=== PATIENT | female | born 1980 | race Caucasian/White ===

== ENCOUNTER 2017-03-04 10:34 | Emergency (ER) | payer BC ==
[2017-03-04 10:43] VITALS: RESP 16; TEMP 98.2
--- NOTE | 2017-03-04 10:56 | ED PDOC ---
Arrival/HPI - General Chief Complaint: Abdominal Pain Time Seen by Provider: 03/04/17 10:51 Historian: Patient - History of Present Illness Narrative History of Present Illness (Text): 03/04/17 10:53 36 year old female, no significant pmh, nkda, complaining of lt. lower abdominal pain started yesterday. Aching and cramping pain, no nausea or vomiting, no diarrhea, no headache, no fever or chills, no change in appetize, eating and drinking well, no coughing, no pleuritic pain, no shortness of breath, no night sweat, no abdominal surgery, no other medical or psychological complaints. Past Medical History - Provider Review Nursing Documentation Reviewed: Yes - Psychiatric Hx Psychophysiologic Disorder: No Hx Substance Use: No Family/Social History - Physician Review Nursing Documentation Reviewed: Yes Family/Social History: Unknown Family HX Smoking Status: Never Smoked Hx Alcohol Use: No Hx Substance Use: No Allergies/Home Meds Allergies/Adverse Reactions: Allergies No Known Allergies Allergy (Verified 03/04/17 10:39) Review of Systems - Review of Systems Constitutional: absent: Fatigue, Fevers Eyes: absent: Vision Changes ENT: absent: Hearing Changes Respiratory: absent: SOB, Cough Cardiovascular: absent: Chest Pain Gastrointestinal: Abdominal Pain. absent: Diarrhea, Nausea, Vomiting Genitourinary Female: absent: Dysuria Musculoskeletal: absent: Arthralgias, Myalgias Skin: absent: Rash, Pruritis Neurological: absent: Headache, Dizziness Physical Exam Vital Signs Reviewed: Yes Vital Signs Temp Pulse Resp BP Pulse Ox 03/04/17 11:21 98.2 F 72 16 104/72 98 03/04/17 10:39 98.2 F 70 16 102/68 97 Temperature: Afebrile Blood Pressure: Normal Pulse: Regular Respiratory Rate: Normal Appearance: Positive for: Well-Appearing, Non-Toxic, Comfortable Pain Distress: Mild Mental Status: Positive for: Alert and Oriented X 3 - Systems Exam Head: Present: Atraumatic, Normocephalic Pupils: Present: PERRL Extroacular Muscles: Present: EOMI Conjunctiva: Present: Normal Mouth: Present: Moist Mucous Membranes Neck: Present: Normal Range of Motion Respiratory/Chest: Present: Clear to Auscultation, Good Air Exchange. No: Respiratory Distress, Accessory Muscle Use Cardiovascular: Present: Regular Rate and Rhythm, Normal S1, S2. No: Murmurs Abdomen: Present: Normal Bowel Sounds. No: Tenderness, Distention, Peritoneal Signs, Rebound, Guarding Genitourinary/Pelvic Exam: Present: Other (Pt. deferred and declined. ) Back: Present: Normal Inspection Upper Extremity: Present: Normal Inspection. No: Cyanosis, Edema Lower Extremity: Present: Normal Inspection. No: Edema Neurological: Present: GCS=15, Speech Normal, Motor Func Grossly Intact, Gait Normal, Memory Normal Skin: Present: Warm, Dry, Normal Color. No: Rashes Psychiatric: Present: Alert, Oriented x 3, Normal Insight, Normal Concentration Medical Decision Making ED Course and Treatment: 03/04/17 11:01 -labs/ua -Transvaginal sonogram -Abdominal xray -IVF/toradol -Observe and reassess 03/04/17 13:54 -Urine hcg: negative -Labs are non-significant -UA show mild UTI -Abdominal xray: mild fecal retention with no obstruction, magnesium citrate ordered. -Sonogram show: 1.4cm follicular cyst on left ovary with normal blood flow, no torsion -Pain decreased with the IV toradol -Discharge home with magnesium citrate, naproxen, macrobid, bed rest, heat compression, high fiber diet, follow up with your own pmd and obgy/GI within 2 days, return to the ER for any new or worsening signs or symptoms. - Lab Interpretations Lab Results: 03/04/17 11:05 03/04/17 11:05 Lab Results 03/04/17 11:15: Urine Color Yellow, Urine Appearance Clear, Urine pH 6.5, Ur Specific [place] 1.020, Urine Protein Negative, Urine Glucose (UA) Negative, Urine Ketones Negative, Urine Blood Small H, Urine Nitrate Negative, Urine Bilirubin Negative, Urine Urobilinogen 0.2, Ur Leukocyte Esterase Small H, Urine RBC 0 - 2, Urine WBC 1 - 3, Ur Epithelial Cells 1 - 3, Urine Bacteria Small 03/04/17 11:05: Sodium 139, Potassium 4.1, Chloride 107, Carbon Dioxide 22, Anion Gap 14, BUN 11, Creatinine 0.6, Est GFR ( Amer) > 60, Est GFR (Non- Af Amer) > 60, Random Glucose 96, Calcium 9.1, Total Bilirubin 0.4, AST 22, ALT 25, Alkaline Phosphatase 87, Total Protein 7.9, Albumin 4.0, Globulin 3.8, Albumin/Globulin Ratio 1.1, Lipase 60 03/04/17 11:05: WBC 6.9, RBC 4.18, Hgb 11.3 L, Hct 33.4 L, MCV 79.9 L, MCH 27.0 , MCHC 33.8, RDW 15.0 H, Plt Count 368, MPV 8.7, Gran % 68.3 H, Lymph % (Auto) 22.4, Boyle % (Auto) 6.6 H, Eos % (Auto) 2.6, Baso % (Auto) 0.1, Gran # 4.73, Lymph # 1.6, Boyle # 0.5, Eos # 0.2, Baso # 0.01 Interpretation: Abnormal lab values (UA show +UTI) - RAD Interpretation Radiology Orders: 03/04/17 10:57 ABDOMEN MULTIPLE VIEW (w/OBL) [RAD] Stat TRANSVAGINAL [US] Stat 03/04/17 12:34 TRANSVAGINAL [US] Stat Abdominal xray: HISTORY: LLQ pain, non-tender COMPARISON: No prior. FINDINGS: BOWEL: No evidence of bowel obstruction. Mild retained feces. No masses or abnormal intra-abdominal calcifications. An intrauterine device is noted within the pelvis. BONES: Normal. OTHER FINDINGS: None. IMPRESSION: No evidence of bowel obstruction. Mild fecal retention. HISTORY: r/o ovarian torsion COMPARISON: None available. TECHNIQUE: Transabdominal and transvaginal FINDINGS: UTERUS: Measures 9.2 x 4.8 x 5.5 cm. Normal in size and appearance. No fibroid or other mass lesion seen. ENDOMETRIUM: Endometrial thickness cannot be adequately evaluated in the presence of an intrauterine device. IUD noted centrally within the endometrial echo complex. CERVIX: No cervical abnormality identified. RIGHT OVARY: Measures 2.3 x 1.4 x 1.5 cm. No solid mass. Normal flow. LEFT OVARY: Measures cm. No solid mass. Normal flow. 1.4 cm follicular cyst. FREE FLUID: No significant free fluid noted. OTHER FINDINGS: None. IMPRESSION: Intrauterine device noted. Otherwise unremarkable examination. [employer]: Radiologist - Medication Orders Current Medication Orders: Discontinued Medications Sodium Chloride (Sodium Chloride 0.9%) 1,000 mls @ 999 mls/hr IV .Q1H1M STA Stop: 03/04/17 11:57 Last Admin: 03/04/17 11:16 Dose: 999 mls/hr eMAR Start Stop Document 03/04/17 11:16 AD (Rec: 03/04/17 11:16 AD [id number]) Intravenous Solution Start Date 03/04/17 Start Time 11:16 Ketorolac Tromethamine (Toradol) 30 mg IVP STAT STA Stop: 03/04/17 10:58 Last Admin: 03/04/17 11:16 Dose: 30 mg MAR Pain Assessment Document 03/04/17 11:16 AD (Rec: 03/04/17 11:17 AD [id number]) Pain Reassessment Is this a pain reassessment? No Presence of Pain Presence of Pain Yes Pain Scale Used Pain Scale Used Numeric Location Left, Right or Bilateral Left Pain Location Body Site Abdomen Description Description Sharp Intensity of Pain at present 8 Pain Behavior Facial Grimacing Aggravating Factors ADL's Changing Position Exercise/Activity Alleviating Factors/Management Medication Techniques IVP Administration Document 03/04/17 11:16 AD (Rec: 03/04/17 11:17 AD [id number]) Charges for Administration # of IVP Administrations 1 - PA / INJECTION MOLDING PROCESS TECHNICIAN / Resident Statement MD/DO has reviewed & agrees with the documentation as recorded. Disposition/Present on Arrival - Present on Arrival Any Indicators Present on Arrival: No History of DVT/PE: No History of Uncontrolled Diabetes: No Urinary Catheter: No History of Decub. Ulcer: No History Surgical Site Infection Following: None - Disposition Have Diagnosis and Disposition been Completed?: Yes Diagnosis: Constipation, Ovarian cyst, UTI (urinary tract infection) Disposition: HOME/ ROUTINE Disposition Time: 13:57 Patient Plan: Discharge Condition: IMPROVED Additional Instructions: -Discharge home with magnesium citrate, naproxen, macrobid, bed rest, heat compression, high fiber diet, follow up with your own pmd and obgy/GI within 2 days, return to the ER for any new or worsening signs or symptoms. Prescriptions: Naproxen 500 mg PO BID PRN #22 tab PRN Reason: Other Nitrofurantoin Macrocrystals [Macrobid] 100 mg PO BID #14 cap Referrals: PCP,NO [Primary Care Provider] - Follow up with primary Zaria Fraser MD [Medical Doctor] - Follow up with primary Jose Moore MD [Staff Provider] - Follow up with primary [facility] at [facility] [place] [Outside] - Follow up with primary Forms: [employer] (Algerian), WORK NOTE
[2017-03-04] MEDS ORDERED: Sodium Chloride 0.9% 1,000 ML IV STA (10:57)
[2017-03-04 11:22] VITALS: BP 104/72; PULSE 72; O2SAT 98
[2017-03-04 11:25] LABS: BASO # 0.01 K/mm3 (0.0-2.0); BASO % 0.1 % (0.0-3.0); EOS # 0.2 (0.0-0.7); EOS % 2.6 % (1.5-5.0); GRAN # 4.73 (1.4-6.5); GRAN % 68.3 % (50.0-68.0); HEMATOCRIT 33.4 % (36.0-48.0); LYMPH # 1.6 (1.2-3.4); LYMPH % 22.4 % (22.0-35.0); MEAN CELL VOLUME 79.9 fl (80.0-105.0); MEAN CORPUSCULAR HGB CONC 33.8 g/dl (31.0-37.0); MEAN PLATELET VOLUME 8.7 fl (7.0-11.0); MONO # 0.5 (0.1-0.6); MONO % 6.6 % (1.0-6.0); WHITE BLOOD COUNT 6.9 10^3/ul (4.5-11.0)
[2017-03-04 11:25] LABS: PH,URINE 6.5 (4.7-8.0); URINE BILIRUBIN NEGATIVE (NEGATIVE); URINE BLOOD SMALL (NEGATIVE); URINE GLUCOSE (UA) NEGATIVE (NEGATIVE); URINE KETONE NEGATIVE (NEGATIVE); URINE LEUKOCYTE ESTERASE SMALL Leu/uL (NEGATIVE); URINE PROTEIN NEGATIVE mg/dL (<30 mg/dL); URINE UROBILINOGEN 0.2 E.U./dL (<1 E.U./dL)
[2017-03-04 11:28] LABS: URINE APPEARANCE CLEAR (CLEAR); URINE COLOR YELLOW (YELLOW)
[2017-03-04 11:34] LABS: ALB/GLOB RATIO 1.1 (1.1-1.8); ALKALINE PHOSPHATASE 87 U/L (38-126); ALT/SGPT 25 U/L (7-56); AST/SGOT 22 U/L (14-36); BILIRUBIN,TOTAL 0.4 mg/dL (0.2-1.3); BLOOD UREA NITROGEN 11 mg/dL (7-21); CALCIUM 9.1 mg/dL (8.4-10.5); CARBON DIOXIDE 22 mmol/L (21-33); CHLORIDE 107 mmol/L (98-107); GFR AFRICAN-AMERICAN > 60; GLUCOSE,RANDOM 96 mg/dL (70-110); LIPASE 60 U/L (23-300); POTASSIUM 4.1 mmol/L (3.6-5.0); SODIUM 139 mmol/L (132-148); TOTAL PROTEIN 7.9 g/dL (5.8-8.3)
[2017-03-04 11:38] LABS: URINE RBC 0 - 2 /hpf (0-2)
[2017-03-04 11:39] LABS: URINE BACTERIA SMALL (NEG)
--- NOTE | 2017-03-04 12:22 | US ---
HISTORY: lt. lower quadrant abdominal pain COMPARISON: None available. TECHNIQUE: Transabdominal and transvaginal FINDINGS: UTERUS: Measures 8.5 x 5.3 x 5.3 cm. Normal in size and appearance. No fibroid or other mass lesion seen. ENDOMETRIUM: Measures approximately 7 mm in diameter. Evaluation of thickness limited by intrauterine device. Intrauterine device noted centrally within endometrial echo complex. CERVIX: No cervical abnormality identified. RIGHT OVARY: Measures 2.8 x 1.2 x 1.3 cm. No solid mass. Normal flow. LEFT OVARY: Not visualize FREE FLUID: No significant free fluid noted. OTHER FINDINGS: None. IMPRESSION: Intrauterine device appropriately situated within endometrial echo complex. Otherwise unremarkable examination.
--- NOTE | 2017-03-04 13:19 | RAD ---
HISTORY: LLQ pain, non-tender COMPARISON: No prior. FINDINGS: BOWEL: No evidence of bowel obstruction. Mild retained feces. No masses or abnormal intra-abdominal calcifications. An intrauterine device is noted within the pelvis. BONES: Normal. OTHER FINDINGS: None. IMPRESSION: No evidence of bowel obstruction. Mild fecal retention.
--- NOTE | 2017-03-04 13:24 | US ---
HISTORY: r/o ovarian torsion COMPARISON: None available. TECHNIQUE: Transabdominal and transvaginal FINDINGS: UTERUS: Measures 9.2 x 4.8 x 5.5 cm. Normal in size and appearance. No fibroid or other mass lesion seen. ENDOMETRIUM: Endometrial thickness cannot be adequately evaluated in the presence of an intrauterine device. IUD noted centrally within the endometrial echo complex. CERVIX: No cervical abnormality identified. RIGHT OVARY: Measures 2.3 x 1.4 x 1.5 cm. No solid mass. Normal flow. LEFT OVARY: Measures cm. No solid mass. Normal flow. 1.4 cm follicular cyst. FREE FLUID: No significant free fluid noted. OTHER FINDINGS: None. IMPRESSION: Intrauterine device noted. Otherwise unremarkable examination.
[2017-03-04] MEDS ORDERED: Magnesium Citrate Oral SOL (300 ml) PO ONE (13:56)
== END 2017-03-04 14:28 | disposition home or self-care (01) ==
LOC: ED 10:34
DX: K59.00 Constipation, unspecified (principal); N39.0 Urinary tract infection, site not specified; N83.02 Follicular cyst of left ovary
CPT/HCPCS: 74022; 76830; 80053; 81001; 83690; 85025; 87086; 96374; 99284; J1885; J7040